=== PATIENT | male | born 1965 | race Caucasian/White ===

== ENCOUNTER 2016-05-24 12:12 | Day surgery (SDC) | payer OTHER ==
[2016-05-24] VITALS (8 sets, daily range): BP systolic 111–132; BP diastolic 48–75; PULSE 65–103; RESP 8–16; O2SAT 95–100
[~2016-05-24] VITALS: Ht 182.9 cm; Wt 94.3 kg
[~2016-05-24 12:12] MED LIST: ATEN50TA PO; Ampicillin 2,000 mg/50 mL NS Minibag Plus IV SCH; HYDR12.55 PO; levoFLOXacin Inj 500 MG in IV Premix 1 EACH IV ONE
[2016-05-24] MEDS ORDERED: Dexamethasone 4 mg/mL Inj ONE (12:13)
[2016-05-24] MEDS ORDERED: EPHEDrine/NS 5 mg/mL 5 mL Syringe ONE (12:13)
[2016-05-24] MEDS ORDERED: Phenylephrine/NS-PF 100 mCg/mL 5 mL Syringe IVPUSH ONE (12:13)
[2016-05-24] MEDS ORDERED: fentaNYL-PF 50 mCg/mL 2 mL Inj ONE (12:13)
[2016-05-24] MEDS ORDERED: MetoCLOpramide 5 mg/mL 2 mL Inj ONE (12:13)
[2016-05-24] MEDS ORDERED: Propofol 10,000 mCg/mL 20 mL Inj ONE (12:13)
[2016-05-24] MEDS ORDERED: Ondansetron 2 mg/mL 2 mL Inj ONE (12:13)
[2016-05-24] MEDS ORDERED: Neostigmine 1 mg/mL 10 mL Inj ONE (12:13)
[2016-05-24] MEDS ORDERED: Glycopyrrolate 0.2 MG/ML 1mL Inj ONE (12:13)
[2016-05-24] MEDS: Lactated Ringer's 1,000 ML IV SCH ×2 (12:18→14:17)
--- NOTE | 2016-05-24 12:41 | DRSVH ---
PROCEDURE: X-RAY CHEST ONE VIEW, PORTABLE ([id number]) INDICATIONS: pre-op TECHNIQUE: One view of the chest was acquired. COMPARISON: [facility], , CHEST 2VW, 07/12/2014, 11:59. FINDINGS: Surgical changes and devices: None. Lungs and pleura: Slight interstitial prominence within the left infrahilar region appears to be pres ent. There is no lobar consolidation, effusion, or pneumothorax. Mediastinum: Mediastinal contours appear normal. Heart size is normal. Bones and chest wall: No suspicious bony lesions. Overlying soft tissues appear unremarkable. IMPRESSION: Mild left infrahilar interstitial prominence may be exaggerated by overlying calcified ca rtilage of the ribs and technique. The possibility of a subtle underlying interstitial pneumonia or mild edema cannot be excluded, but is felt to be less likely. The need for a conventional [address] [facility] [address] x-ray may be determined clinically. Dictated by: Max Chino M.D. on 05/24/2016 at 11:38 Approved by: Max Chino M.D. on 05/24/2016 at 11:40
[2016-05-24] MEDS ORDERED: levoFLOXacin 500 mg/100 mL D5W Premix IV ONE (13:14)
[2016-05-24] MEDS ORDERED: Lactated Ringer's 1,000 ML IV SCH (14:46)
[2016-05-24] MEDS ORDERED: Lactated Ringer's 500 ML IV PRN (14:46)
--- NOTE | 2016-05-24 14:46 | PCM.HPANE ---
Patient Data Surgeon Admitting Provider: Attending Provider:Mickey Dukes MD Primary Care Physician:Leonardo Other Provider:Chidi Earl Anesthesia Reason for Visit Right Kidney Stone Ht/WT & BMI Height (Feet): 5 Height (Inches): 11 Weight (Kilograms): 97.7 Body Mass Index 30.00 Allergies Coded Allergies: No Known Allergies (Verified Allergy, Unknown, 05/24/16) Past Anesthesia History Anesthesia History: Denies:: Anesthesia Reactions, Malignant Hyperthermia Diabetes History Hx Diabetes?: No MRSA MRSA: No Medications Hypertension Medication: Yes Home Meds Incl Beta Hui: Yes Reported Medications Hydrochlorothiazide 12.5 Mg Lijaoq83.5 Mg PO DAILY 30 Days Ref 0 05/23/16 Atenolol 50 Mg Dxyxeq16 Mg PO DAILY #30 TABLET Ref 0 05/23/16 Discontinued Reported Medications Tamsulosin (Flomax)0.4 Mg Capsule0.4 Mg PO DAILY 30 Days Ref 0 05/04/14 Cephalexin 250 Mg [id number] Mg PO HS #30 CAPSULE Ref 0 05/04/14 Atenolol 50 Mg Hltckx16 Mg PO HS #30 TABLET Ref 0 03/09/14 Hydrochlorothiazide 12.5 Mg Cqtytn16.5 Mg PO DAILY 30 Days Ref 0 03/09/14 History History of ENT Problems?: No Hx of Heart Problems?: Yes Cardiovascular History: Positive for:: Hypertension Hx of Respiratory Problem?: Yes Respiratory History: Positive for:: Use of C-PAP Machine Hx Neurologic Problems?: No Neurological History: Denies:: CVA Dizziness Headaches Multiple Sclerosis Parkinson's Disease Hx of GI Problems?: No Gastrointestinal History: Denies:: Gall Bladder Disease Gastroesphageal Reflux Hepatitis Hx of Problems?: Yes Genitourinary History: Positive for:: Kidney Stones (right stone current admission problem, hx of multiple prior stones) Denies:: Urinary Tract Infection (past hx of, not current) Male Hx: Denies:: Prostate Problems Scrotal Mass Testicular Surgery Skin History: Denies:: History Skin Disorders? Pressure Ulcers Hx Musculoskeletal Problems?: Yes Musculoskeletal History: Positive for:: Musculoskeletal Trauma (hx of left foot ankle surgery (charcot disease)) Denies:: Back Injury (hx of low back pain) Hx of Psycho/Social Problems?: No Hx Surgeries?: Yes (CYSTO,LITHOTRIPSY,RT STENT W/ EXCHANGE, L ankle reconstruction) Hx Any Other Health Problems?: Yes Other History: Positive for:: Hospitalization (LT KIDNEY STONE/UTI) Denies:: Cancer Endocrine Disease Thyroid Disease History Blood Transfusions: Denies:: Blood Transfusions Hx Diabetes: No Smoking Status: Never Smoker Have You Smoked inLast 12 mo: No Stop/Bang S-Snoring: Do You Snore Loudly: Yes T-Tired: feel tired, fatigued: No O-Obsered: Observed not breath: No P-Blood Pressure: treated: Yes B- Body Mass Index > 35 kg/m2: No A- Age over 50: Yes N- Neck Large Circumference: No G- Gender Male: Yes ARIES Total Score: 4 Risk Assessment Category Category 1A: Patient has history of documented sleep apnea, and HAS NOT received any narcotic, sedative or anesthesia administration during this stay. Category 1B: Patient has history of documented sleep apnea, and HAS received any narcotic , sedative or anesthesia administration during this stay Category 2: Patient has SUSPECTED Obstructive Sleep Apnea, and HAS received any narcotic , sedative or anesthesia administration during this stay. Category 3: Patient has SUSPECTED Obstructive Sleep Apnea and HAS NOT received narcotic, sedative or anesthesia administration during this stay. Category 4: Outpatient in Procedural Areas with known sleep apnea or who screen positive for High Risk via the STOP/BANG questionnaire. Exam Exam General Appearance: Alert, Oriented X3, Cooperative, No Acute Distress HEENT/AIRWAY: MP 2, Neck Movement (FROM), Mouth Opening (3 FBMO) Lungs: Clear to Auscultation, Normal Air Movement Heart: Exam Unremarkable, Regular Rate/Rhythm, No Murmurs/Rubs/Gallops Meds/Labs/Diagnostics Admission Meds Current Medications Lactated Ringer's (Lr) 1,000 ml @ 120 mls/hr Q8H20M IV Last administered on t 12:18; Start 05/24/16 at 05:00; Stop 05/24/16 at 13:19 Plan Impression Patient chart reviewed, patient interviewed and anesthestic plan with risks, benefits, and alternatives discussed, and informed consent obtained. NPO Status: 0600 water with meds ASA Physical Status: ASA2 Mod Systemic Disease Anesthetic Plan: GA Bene/Risks/Altern/Consents: Yes HP Complete Prior to Induction: Yes Jimbo Stoddard MD May 24, 2016 12:54
[2016-05-24] MEDS ORDERED: fentaNYL-PF 50 mCg/mL 2 mL Inj IVPUSH PRN (14:50)
[2016-05-24] MEDS ORDERED: HYDROmorphone 1 mg/mL Inj IVPUSH PRN (14:50)
[2016-05-24] MEDS ORDERED: EPHEDrine Sulfate 50 mg/mL Inj IVPUSH PRN (14:50)
[2016-05-24] MEDS ORDERED: MetoCLOpramide 5 mg/mL 2 mL Inj IVPUSH PRN (14:50)
[2016-05-24] MEDS ORDERED: Ondansetron 2 mg/mL 2 mL Inj IVPUSH PRN (14:50)
[2016-05-24] MEDS ORDERED: Atropine 0.4 mg/mL Inj IVPUSH PRN (14:50)
[2016-05-24] MEDS ORDERED: Labetalol 5 mg/mL 4 mL Inj IV PRN (14:50)
[2016-05-24] MEDS ORDERED: Phenylephrine 10,000 mCg/mL Inj IVPUSH PRN (14:50)
[2016-05-24] MEDS ORDERED: Belladonna Alk-Opium 60 mg Rectal Suppository RECTAL ONE (16:37)
--- NOTE | 2016-05-24 16:56 | PCM.SURGPO ---
Immediate Operative Note Date of Surgery: May 24, 2016 Pre Operative Diagnosis R renal calculi Post Operative Diagnosis R renal calculi Procedure Cystoscopy, R ureteroscopy, Holmium laser lithotripsy, basket extraction of calculi and calculi fragments, and R ureteral stent placement (modifier 22) Surgeon and Application Development Liaison Surgeon: Mickey Dukes MD Assistants: None Findings R semi-rigid ureteroscopy revealed no calculi in R distal or R mid ureter. A 12 /14F x 45cm ureteral access sheath was placed in R ureter. R flexible ureteroscopy revealed no calculi in R proximal ureter and a very large number of R renal calculi (majority of calculi approx. <5mm, small number of calculi approx. 5-10mm). Holmium laser lithotripsy and basket extraction of calculi and calculi fragments were performed. R ureteral stent was placed. Complications There were no periprocedural complications identified. Surgical Specimen Removed: Yes Specimen sent to Pathology: No Surgical Specimen description: R renal calculi and calculi fragments sent to lab for stone analysis Anesthetic Administered: GA Grafts, Implants: Other (26cm x 8F R ureteral JJ stent (no string)) Output, Estimated Blood Loss: <5 Blood Admin during surgery: No Additional information Patient to be discharged home when stable, to return to see me in 2-3 weeks for post-op visit, with a KUB prior to appt. Mickey Dukes MD May 24, 2016 16:56
--- NOTE | 2016-05-24 17:02 | PCM.ANEP1 ---
Post Anesthesia Phase 1 PACU Phase 1 Assessment Vital Signs Vital Signs Date Time Temp Pulse Resp B/P Pulse Ox O2 Delivery O2 Flow Rate FiO2 05/24/16 16:55 96 13 123/64 99 Simple Mask 9 05/24/16 16:54 36.9 103 8 132/65 99 Simple Mask 9 05/24/16 13:00 36.5 65 16 128/75 100 Room Air Anesthetic Administered: GA Level of Alertness: Awake, talking CALDERA's with Equal Strength: Yes Pain: No Nausea or Vomiting: No Oxygen Delivery: Simple Mask Lungs: Clear to Auscultation, Normal Air Movement Dermatome Level: Full Sensation Jimbo Stoddard MD May 24, 2016 17:02
--- NOTE | 2016-05-24 17:03 | PCM.ANEP2 ---
Post Anesthesia Evaluation ASA/CMS Post Anesthesia VS in Patient's Normal Range?: Yes Resp Stable; Airway Patent?: Yes CV Function & Hydration Stable: Yes Mental Status Recovered?: Yes Pain control Satisfactory?: Yes N/V Control Satisfactory?: Yes Jimbo Stoddard MD May 24, 2016 17:03
--- NOTE | 2016-05-24 17:13 | PCM.DISURG ---
Surgical Discharge Instruction Date of Service May 24, 2016 Dates of Hospitalization Date of Hospital Admission May 24, 2016 Providers Admitting Physician: Mickey Dukes MD Primary Care Physician: Dr. Deniz Kelly Attending Physician: Mickey Dukes MD Discharge Diagnosis Discharge Diagnosis R renal calculi Post Operative diagnosis R renal calculi Diet Discharge Diet: No restrictions, Other (Drink at least 10-12 8oz. glasses (3 liters) of fluids per day) Activity Discharge Activity-General: No driving while taking narcotic Dressing and Incisional Care Hygiene: May shower Follow Up Plan Follow-up Provider (F9): Mickey Dukes MD Follow-up appointment: Weeks (2-3 weeks for post-op visit, with a KUB prior to appt.) Call your provider for: Fever, Chills, Vomiting, Other (Pain uncontrolled by pain medications) Mickey Dukes MD May 24, 2016 17:13
[2016-05-24] MEDS ORDERED: Ondansetron 8 mg ODT Tablet PO PRN (17:15)
[2016-05-24] MEDS ORDERED: HYDROcodone-APAP 5-325 mg Tablet PO PRN (17:15)
[2016-05-24] MEDS ORDERED: Lactated Ringer's 1,000 ML IV ONE (17:28)
--- NOTE | 2016-05-25 09:02 | DRSVH ---
PROCEDURE: X-RAY RETROGRADE UROGRAPHY INDICATIONS: STONE REMOVAL TECHNIQUE: 3 intra-operative images acquired by the Urology service. COMPARISON: [facility], CT, CT ABD PELVIS W&WO CON IVP, 03/06/2016, 15:14. FINDINGS: Multiple intraluminal filling defects seen within the right renal collecting system larges t measuring roughly 2 cm. There is mild hydronephrosis. No extravasation of contrast media a ureter al stent in place. IMPRESSION: Right hydronephrosis and multiple intraluminal filling defects visualized largest measuring roughly 2 cm. Placement of ureteral stent. Dictated by: Manuel Carrasco [facility] Interpreted: Mckayla Cardoso MD on 05/25/2016 at 9:00 Transcribed by: ALDAIR on 05/25/2016 at 9:01 Approved by: Mckayla Cardoso MD, PhD on 05/25/2016 at 16:35
--- NOTE | 2016-05-25 15:27 | OP ---
[address] [address] OPERATIVE REPORT PATIENT: RODY SCOTT : 1965 MR#: [id number] ADMIT: 05/24/2016 JOB ID: [id number] DATE OF SURGERY: 05/24/2016 PREOPERATIVE DIAGNOSIS(ES): Right renal calculi. POSTOPERATIVE DIAGNOSIS(ES): Right renal calculi. PROCEDURE: Cystoscopy, right ureteroscopy, Holmium laser lithotripsy, basket extraction of calculi and calculi fragments, and right ureteral stent placement (modifier 22). SURGEON: Mickey Dukes MD. COMIC BOOK WRITER: None. ANESTHESIA: General. ESTIMATED BLOOD LOSS: Less than 5 mL. SPECIMENS: Right renal calculi and calculi fragments sent to the lab for stone analysis. DRAINS: 26 cm x 8-Eritrean right ureteral double-J stent. COMPLICATIONS: None. CONDITION: Stable. FINDINGS: Right semi-rigid ureteroscopy revealed no calculi in right distal or right mid ureter. A 12/14-Eritrean x 45 cm ureteral access sheath was placed in the right ureter. Right flexible ureteroscopy revealed no calculi in right proximal ureter and a very large number of right renal calculi (majority of calculi approximately less than 5 mm and a smaller number of calculi approximately 5-10 mm). Holmium laser lithotripsy and basket extraction of calculi and calculi fragments were performed. Right ureteral stent was placed. INDICATIONS: The patient is a 51-year-old male with multiple non-obstructing right renal calculi seen on CT scan. The patient now presents for cystoscopy, right ureteroscopy, Holmium laser lithotripsy, basket extraction of calculi fragments , and right ureteral stent placement. PROCEDURE: Patient was brought to the operating room and placed supine on the operating room table. The patient was given Ampicillin and Levaquin IV antibiotics. Sequential compression device boots were placed. General anesthesia was administered. The patient was brought down into the dorsal lithotomy position. The patient was prepped and draped in standard surgical fashion. A 22-Eritrean rigid cystoscope placed in the distal urethra without difficulty. Cystoscopy revealed normal distal urethra, no bladder tumors or lesions, and bilateral ureteral orifices in normal position. A straight-tip UltraTrack guidewire was passed into the right ureteral orifice and passed up the right ureter into the right renal pelvis. Cystoscope was removed from the patient. The guidewire was secured to the drape with a Tammie clamp as a safety wire. A semi-rigid ureteroscope was passed through the urethra and bladder and into the right ureteral orifice with the assistance of a PTFE guidewire. Right semi-rigid ureteroscopy revealed no calculi in right distal or right mid ureter. PTFE guidewire was advanced up the right ureter into the right renal pelvis. The semi-rigid ureteroscope was removed from the patient. A 12/14- Eritrean x 45 cm ureteral access sheath was passed over the PTFE guidewire through the urethra and bladder and into the right mid ureter. The inner portion of the sheath and PTFE guidewire were removed from the patient. A flexible ureteroscope was passed through the ureteral access sheath into the right proximal ureter. Right flexible ureteroscopy revealed no calculi in the right proximal ureter and a very large number of right renal calculi (majority of calculi approximately less than 5 mm and a smaller number of calculi approximately 5-10 mm). Holmium laser lithotripsy of the calculi was performed using a 273 micron Holmium laser fiber. Of note, the majority of the calculi were seen to be in right lower pole and right mid pole calyces, and again a very large number of calculi were seen. Basket extraction of calculi and calculi fragments was performed using a 2.4-Eritrean NCompass nitinol basket and a 2.4-Eritrean NCircle nitinol basket. Calculi and calculi fragments were sent to the lab for stone analysis. An approximately 1 cm calculus was seen in a right lower to mid pole calyx at the end of a long infundibulum, with difficulty encountered in manipulating the flexible ureteroscope into the calyx. The calculus was able to be partially fragmented using Holmium laser lithotripsy. However, the remainder of the calculus was unable to be fragmented secondary to the location of the calculus in a corner of the calyx. The calculus was attempted to be manipulated out of the calyx or into a different part of the calyx using the NCompass and NCircle baskets and also a 2.2-Eritrean NGage nitinol basket. However, this was unable to be achieved, and thus the remainder of the calculus was unable to be treated. Thus, the calculus was unable to be manipulated into a different part of the calyx or out of the calyx, and the remainder of the calculus was unable to be fragmented secondary to the location of the calculus in a corner of the calyx, with the calyx located at the end of a long infundibulum in the lower to mid pole. If patient is unable to pass this calculus in the future, would recommend extracorporeal shockwave lithotripsy of this calculus or possibly ureteroscopy with a thinner flexible ureteroscope. Of note, throughout the procedure, multiple irrigations of the renal collecting system were performed using power irrigation, using normal saline solution to irrigate fragments out of the collecting system. Of note, a modifier 22 is being used for this case secondary to the difficult nature of the case with a very large number of renal calculi seen and with the difficult location of the 1 cm calculus in the right lower to mid pole calyx, with this case taking more than 50% longer than usual for this type of case. A small amount of contrast was instilled into the right renal collecting system to illuminate the right renal collecting system to aid in stent placement. The flexible ureteroscope and ureteral access sheath were backed down the right ureter, and the entire right ureter was visualized. No significant calculi were seen in the right ureter. Flexible ureteroscope and ureteral access sheath were removed from the patient. The rigid cystoscope was passed over the safety guidewire through the urethra into the bladder. A 26 cm x 8-Eritrean ureteral double-J stent, with the stent string removed prior to stent placement, was passed over the guidewire through the cystoscope and passed up the right ureter and placed so that the proximal pigtail was located in the right renal pelvis and the distal pigtail was located in the bladder. Guidewire was removed. Correct positioning of the stent was confirmed both fluoroscopically and under direct visualization using the cystoscope. Good efflux of contrast could be seen draining from the distal end of the stent into the bladder, further confirming correct stent positioning. Thus, right ureteral stent was placed. The right renal calculi and calculi fragments were sent to the lab for stone analysis. The bladder was drained via the cystoscope. Cystoscope was removed from the patient. The skin was cleaned and dried. Patient was placed in supine position. The patient was awakened from general anesthesia and transferred to the recovery room in stable condition. The patient tolerated the procedure well. Plan is for the patient to be discharged home when stable and to return to see me in the office in 2-3 weeks for postop visit with a KUB X-ray prior to the appointment. SAMIR
[2016-06-01 09:10] LABS: Stone Color Tan (.)
== END 2016-05-24 23:59 | disposition home or self-care (01) ==
LOC: SAS 12:12
PROVIDERS: ATTEND Urology
DX: N20.0 Calculus of kidney (principal); N40.1 Benign prostatic hyperplasia with lower urinary tract symptoms; R35.1 Nocturia; G60.0 Hereditary motor and sensory neuropathy; I10 Essential (primary) hypertension; Z87.440 Personal history of urinary (tract) infections
CPT/HCPCS: 52356; 71010; 74420; 82360; 93005; C2617; J0290; J1100; J2370; J2405; J2710; J2765; J3010; J7120; Q9967

== ENCOUNTER 2016-05-28 05:54 | Day surgery (SDC) | payer OTHER ==
[2016-05-28] VITALS (13 sets, daily range): BP systolic 121–152; BP diastolic 73–84; PULSE 72–90; RESP 9–24; O2SAT 95–100
[~2016-05-28] VITALS: Ht 182.9 cm; Wt 97.7 kg
[~2016-05-28 05:54] MED LIST changes: -Ampicillin 2,000 mg/50 mL NS Minibag Plus IV SCH; -levoFLOXacin Inj 500 MG in IV Premix 1 EACH IV ONE
[2016-05-28] MEDS ORDERED: 0.9% Sodium Chloride 1,000 ML IV ONE (06:18)
[2016-05-28] MEDS ORDERED: HYDROmorphone 1 mg/mL Inj IVPUSH ONE (06:20)
[2016-05-28] MEDS ORDERED: HYDROmorphone 1 mg/mL Inj IVPUSH PRN ×2 (06:20→11:15)
[2016-05-28] MEDS ORDERED: Ondansetron 2 mg/mL 2 mL Inj IVPUSH ONE (06:20)
[2016-05-28] MEDS ORDERED: Ondansetron 2 mg/mL 2 mL Inj IVPUSH PRN ×2 (06:20→11:15)
--- NOTE | 2016-05-28 06:20 | ED.REPORT ---
HPI-General Illness Date of Service May 28, 2016 ED Provider: Rachna Franks MD The patient is a 51 year old male with history of kidney stones who presents to the emergency department by EMS for right flank pain that has been worsening over the last week. The patient had surgery to remove a kidney stone on (4 days ago). He was unable to void the day after procedure and had a catheter placed. He was placed on an antibiotic when he had the catheter placed. His pain today was 10/10 and he also noticed diaphoresis. He was given 100 mics fentanyl and Zofran en route by medics. He denies fever, chills, or vomiting. Nursing Notes Stated Complaint: R FLANK PAIN Chief Complaint: Male Abdominal Pain Nursing Notes Reviewed: Yes Allergies: Coded Allergies: No Known Allergies (Verified Allergy, Unknown, 05/24/16) Scheduled Atenolol (Atenolol) 50 Mg Tablet 50 MG PO DAILY Hydrochlorothiazide (Hydrochlorothiazide) 12.5 Mg Tablet 12.5 MG PO DAILY General Time Seen by MD: 06:12 Chief Complaint Other (right flank pain) Hx Obtained From: Patient, EMS Arrived By: Ambulance Onset Occurred: 1 week ago Symptom Duration: Since onset Quality: Painful Severity: Current: Pain level 10 out of 10 Severity: Maximum: Pain level 10 out of 10 Recent Healthcare: Recent doctor visit, Previous surgery Similar Sx Previous: Yes Past Medical History Past Medical History Kidney stones Hx of adenike nicholas Past Surgical History Kidney stone removal Family History Noncontributory Smoking History Never Smoker Social History Other Social History: Local resident Ambulatory Status Independent Review of Systems Full Review of Systems Constitutional: Denies: Chills, Fever GI: Denies: Vomiting Male: Reports Flank pain Skin: Reports Diaphoresis Complete sys rev & neg: except as marked. Physical Exam Vital Signs Vital Signs Date Time Temp Pulse Resp B/P Pulse Ox O2 Delivery O2 Flow Rate FiO2 05/28/16 09:25 72 141/79 95 05/28/16 07:06 77 16 140/81 98 05/28/16 06:04 37.2 72 20 144/83 100 Room Air Initial VS: Reviewed Head / Eyes: Atraumatic, Normocephalic, PERRL ENT: Mucous membranes moist, Conjunctiva normal, No scleral icterus Neck: Supple, Non-tender, Full range of motion Lymphatic: No lymphadenopathy Extremities: Vascular intact, Neuro intact, No swelling, No tenderness Skin: Warm, Dry, No cyanosis Neurologic: Alert, Oriented, Nonfocal Psychiatric: Mood/affect normal, Behavior normal, Normal thought content General/Constitutional: Awake, Alert, Cooperative Respiratory / Chest: Atraumatic, Breath sounds NL, No respiratory distress, No rales, No rhonchi, No wheezing Cardiovascular: Heart rate NL, Regular rhythm, Heart sounds NL, Cap refill not delayed, Peripheral circulation NL Abdomen: Soft, No guarding, No rebound, BS normoactive, No distention Right pelvis tenderness Flank / Spine / Paraspinal: Positive: Flank tender R (down into pelvis) Ankle / Foot: Neurologic intact, Vascular intact Bilateral chronic foot deformities. Male Genitourinary: Atraumatic Capone catheter in place Interpretation & Diagnostics CT KUB IMPRESSION: 1. There are multiple staghorn stones in the right kidney with the largest one measuring 28 x 26 x 13 mm. There is moderate right hydronephrosis and hydroureter. A right ureter stent is present. There is a stone in the distal right ureter adjacent to the right ureter stent. 2. Nonobstructive left renal calculi and small stones in the bladder. No significant discrepancy with the caustic cresylate shift superintendent radiology preliminary report. Dictated by: Priscila Lee M.D. on 05/28/2016 at 8:57 Lab Results Interpretation Result Diagram: 05/28/16 0615 05/28/16 0615 Test 05/28/16 06:15 05/28/16 07:30 White Blood Count 12.9th/mm3 (3.8-10.1) Red Blood Count 5.02mil/mm3 (4.40-5.80) Hemoglobin 15.8g/dL (13.8-17.2) Hematocrit 44.4% (41.0-50.0) Mean Corpuscular Volume 88.4fL (81-100) Mean Corpuscular Hemoglobin 31.5pg (27.0-35.0) Mean Corpuscular Hemoglobin Concent 35.6% (32.0-37.0) Red Cell Distribution Width 13.2% (12.3-15.4) Platelet Count 299bil/L (150-400) Neutrophils (%) (Auto) 80.4% (40-74) Lymphocytes (%) (Auto) 9.7% (14-46) Monocytes (%) (Auto) 9.3% (4-12) Eosinophils (%) (Auto) 0.1% (0-5) Basophils (%) (Auto) 0.2% (0-3) Sodium Level 134mEq/L (134-144) Potassium Level 3.7mEq/L (3.5-5.2) Chloride Level 95mEq/L (97-108) Carbon Dioxide Level 23mmol/L (18-29) Blood Urea Nitrogen 17mg/dL (6-24) Creatinine 0.78mg/dL (0.76-1.27) Estimat Glomerular Filtration Rate 112mL/min (>59) Glucose Level 151mg/dL (60-99) Calcium Level 10.3mg/dL (8.5-10.1) Magnesium Level 1.9mg/dL (1.6-2.6) Total Bilirubin 0.8mg/dL (0.0-1.2) Aspartate Amino Transf (AST/SGOT) 22U/L (0-50) Alanine Aminotransferase (ALT/SGPT) 27U/L (0-44) Alkaline Phosphatase 66U/L (25-150) Total Protein 8.0g/dL (6.4-8.4) Albumin 4.5g/dL (3.4-5.0) Lipase 28U/L (13-60) Hold Urine Received (Received) Re-Eval/Medical Decision Med Decision/Clinical Course 6 mm obstructing right kidney stone in setting of recent lithotripsy and stent in place. We will go back to the operating room this afternoon with Dr. Villalta. Anticipated discharge after that. Pain is controlled in the emergency Department no evidence of acute infection. Source of Hx: Old records, EMS Time of Eval: 07:39 Re-Evaluation/Progress Note: Discussed CT results. Time of Eval: 09:20 Re-Evaluation/Progress Note: Rechecked the patient. Discussed plan to wait for urology. Consultation #1: Referral / Consult Name: Jed Scott MD Consulted With: Urology Call Returned at: 08:34 Note: Discussed the patient's case and CT results. He is in the OR and will review things when he is done. Consultation #2: Referral / Consult Name: Jed Scott MD Consulted With: Urology Call Returned at: 09:56 Note: After evaluating the patient he would like to take the patient to OR in about 3-4 hours. Counseled Regarding: Diagnosis, Lab results, Need for admission Discharge & Departure Primary Impression: Right ureteral stone Additional Impression: History of ureter stent Disposition: ADMITTED TO HOSPITAL Discharge Condition All VS Reviewed: Yes Condition: Stable Referrals: NOPCP (PCP) Scribe Attestation Portions of this note were transcribed by Kylah Massey. I, Dr. Franks personally performed the history, physical exam and medical decision-making; I reviewed and confirmed the accuracy of the information in the transcribed note. Signed by: Alaina Pittman, 05/28/2016 at 1015. Rachna Franks MD May 28, 2016 06:20 Kylah Massey May 28, 2016 07:05
[2016-05-28 06:31] LABS: BASOPHILS % (AUTO) 0.2 % (0-3); EOSINOPHILS % (AUTO) 0.1 % (0-5); MONOCYTES % (AUTO) 9.3 % (4-12); Mean Corpuscular Hemoglobin 31.5 pg (27.0-35.0); Mean Corpuscular Volume 88.4 fL (81-100); NEUTROPHILS % (AUTO) 80.4 % (40-74); Platelet Count 299 bil/L (150-400)
[2016-05-28 06:46] LABS: Magnesium 1.9 mg/dL (1.6-2.6)
--- NOTE | 2016-05-28 09:11 | DRSVH ---
PROCEDURE: CT KUB ([id number]) INDICATIONS: Lithotripsy 5 days ago, flank pain TECHNIQUE: Noncontrast 5 mm thick sections acquired from the diaphragms to the symphysis. 5 mm thick coronal an d sagittal reformats were then performed. For radiation dose reduction, the following was used: aut omated exposure control, adjustment of mA and/or kV according to patient size. COMPARISON: [facility], CT, KIDNEY/ URETER/BLADDER, 09/04/2013, 11:20. [facility], CT, CT ABD PELVIS W&WO CON IVP, 03/06/2016, 15:14. FINDINGS: Image quality: Excellent. Lung bases: Lung bases are clear. Heart size is normal. Urinary system: There are multiple staghorn calculi bilaterally. There are large stones in the right kidney measuring up to 28 x 26 x 13 mm. There is a right ureteral stent. Moderate hydronephrosis is present, as well as moderate hydroureter. There is an elongated stone in the distal right ureter benito cent to the ureter stent measuring 2 x 18 mm. There are several small stones in left kidney measuring up to 4 mm. No left hydronephrosis. Bladder is partially contracted with a Capone catheter. There are small stones layering inside the dep endent bladder lumen. Other solid organs: Liver and spleen are normal in size. Gallbladder is normal. Pancreas is normal in contours. No adrenal nodules. Peritoneum and bowel: Unenhanced bowel loops demonstrate normal wall thickness and caliber. No free fluid or air. Nodes and vessels: No retroperitoneal or mesenteric adenopathy by size criteria. Aorta and inferior vena cava are normal in caliber. Abdominal wall: No ventral hernias. Pelvis: No free pelvic fluid. No inguinal hernias or adenopathy. Bones: No suspicious bony lesions. No vertebral body compression fractures. IMPRESSION: 1. There are multiple staghorn stones in the right kidney with the largest one measuring 28 x 26 x 13 mm. There is moderate right hydronephrosis and hydroureter. A right ureter stent is present. There i s a stone in the distal right ureter adjacent to the right ureter stent. 2. Nonobstructive left renal calculi and small stones in the bladder. No significant discrepancy with the reaming machine operator for plastic radiology preliminary report. Dictated by: Priscila Lee M.D. on 05/28/2016 at 8:57 Approved by: Priscila Lee M.D. on 05/28/2016 at 9:10
[2016-05-28] MEDS ORDERED: Vasopressin 20 Unit/mL Inj ONE (10:23)
[2016-05-28] MEDS ORDERED: EPHEDrine/NS 5 mg/mL 5 mL Syringe ONE (10:23)
[2016-05-28] MEDS ORDERED: Ondansetron 2 mg/mL 2 mL Inj ONE (10:23)
[2016-05-28] MEDS ORDERED: MetoCLOpramide 5 mg/mL 2 mL Inj ONE (10:23)
[2016-05-28] MEDS ORDERED: Rocuronium 10 mg/mL 5 mL Inj ONE (10:23)
[2016-05-28] MEDS ORDERED: Propofol 10,000 mCg/mL 20 mL Inj ONE (10:23)
[2016-05-28] MEDS ORDERED: fentaNYL-PF 50 mCg/mL 2 mL Inj ONE (10:23)
[2016-05-28] MEDS ORDERED: Succinylcholine Chloride 20 mg/mL 5 mL Inj ONE (10:23)
[2016-05-28] MEDS ORDERED: Belladonna Alk-Opium 60 mg Rectal Suppository RECTAL ONE ×2 (11:00→11:33)
[2016-05-28] MEDS ORDERED: Lactated Ringer's 500 ML IV PRN (11:14)
--- NOTE | 2016-05-28 11:14 | PCM.HPANE ---
Patient Data Surgeon Admitting Provider: Attending Provider:Jed Scott MD Primary Care Physician:Deniz Kelly Other Provider: Reason for Visit Obstructing Stone Ht/WT & BMI Height (Feet): 6 Height (Inches): 0 Weight (Kilograms): 97.73 Body Mass Index Allergies Coded Allergies: No Known Allergies (Verified Allergy, Unknown, 05/24/16) Past Anesthesia History Anesthesia History: Denies:: Abnormal Airway, Anesthesia Reactions, Difficult Intubation, Fam Anesthesia Reaction, Fam Malignant Hypertherm, Malignant Hyperthermia Diabetes History Hx Diabetes?: No MRSA MRSA: No Medications Hypertension Medication: Yes Home Meds Incl Beta Hui: Yes Previous Beta Hui Dose >24: Previous Dose <24 Hours Reported Medications Hydrochlorothiazide 12.5 Mg Safmys10.5 Mg PO DAILY 30 Days Ref 0 05/23/16 Atenolol 50 Mg [id number] Mg PO DAILY #30 TABLET Ref 0 05/23/16 Discontinued Reported Medications Tamsulosin (Flomax)0.4 Mg Capsule0.4 Mg PO DAILY 30 Days Ref 0 05/04/14 Cephalexin 250 Mg [id number] Mg PO HS #30 CAPSULE Ref 0 05/04/14 Atenolol 50 Mg [id number] Mg PO HS #30 TABLET Ref 0 03/09/14 Hydrochlorothiazide 12.5 Mg Asvbse43.5 Mg PO DAILY 30 Days Ref 0 03/09/14 History History of ENT Problems?: No Hx of Heart Problems?: Yes Cardiovascular History: Positive for:: Hypertension Hx of Respiratory Problem?: Yes Respiratory History: Positive for:: Use of C-PAP Machine Hx Neurologic Problems?: No Neurological History: Denies:: CVA Dizziness Headaches Multiple Sclerosis Parkinson's Disease Hx of GI Problems?: No Gastrointestinal History: Denies:: Gastroesphageal Reflux Hepatitis Other GI Pertinent History: Endorses nausea today, no emesis. NPO since 20: 00 4/2 Hx of Problems?: Yes Genitourinary History: Positive for:: Kidney Stones (right stone current admission problem, hx of multiple prior stones) Denies:: Urinary Tract Infection (past hx of, not current) Male Hx: Denies:: Prostate Problems Scrotal Mass Testicular Surgery Skin History: Denies:: History Skin Disorders? Pressure Ulcers Hx Musculoskeletal Problems?: Yes Musculoskeletal History: Positive for:: Musculoskeletal Trauma (hx of left foot ankle surgery (charcot disease)) Denies:: Back Injury (hx of low back pain) Hx of Psycho/Social Problems?: No Hx Surgeries?: Yes (CYSTO,LITHOTRIPSY,RT STENT W/ EXCHANGE, L ankle reconstruction) Hx Any Other Health Problems?: Yes Other History: Positive for:: Hospitalization (LT KIDNEY STONE/UTI) Denies:: Cancer Endocrine Disease Thyroid Disease History Blood Transfusions: Denies:: Blood Transfusions Hx Diabetes: No Hx Alcohol Use: NoHx Substance Use: No Smoking Status: Never Smoker Have You Smoked inLast 12 mo: No Stop/Bang ARIES Risk Assessment: High Risk, =/>3 Yes Risk Assessment Category Category 1A: Patient has history of documented sleep apnea, and HAS NOT received any narcotic, sedative or anesthesia administration during this stay. Category 1B: Patient has history of documented sleep apnea, and HAS received any narcotic , sedative or anesthesia administration during this stay Category 2: Patient has SUSPECTED Obstructive Sleep Apnea, and HAS received any narcotic , sedative or anesthesia administration during this stay. Category 3: Patient has SUSPECTED Obstructive Sleep Apnea and HAS NOT received narcotic, sedative or anesthesia administration during this stay. Category 4: Outpatient in Procedural Areas with known sleep apnea or who screen positive for High Risk via the STOP/BANG questionnaire. Exam Exam Vital Signs Vital Signs Date Time Temp Pulse Resp B/P Pulse Ox O2 Delivery O2 Flow Rate FiO2 05/28/16 10:47 83 18 138/78 96 Room Air 05/28/16 09:25 72 141/79 95 05/28/16 07:06 77 16 140/81 98 05/28/16 06:04 37.2 72 20 144/83 100 Room Air General Appearance: Alert, Oriented X3, Cooperative, No Acute Distress HEENT/AIRWAY: MP 2 Lungs: Clear to Auscultation, Normal Air Movement Heart: Exam Unremarkable, Regular Rate/Rhythm, No Murmurs/Rubs/Gallops Meds/Labs/Diagnostics Admission Meds Current Medications Sodium Chloride (Normal Saline) 1,000 ml @ 0 mls/hr Q0M ONCE IV Last administered on 05/28/16 06:30; Start 05/28/16 at 06:18; Stop 05/28/16 at 06:20; Status DC Ondansetron HCl (Zofran Inj) 8 mg ONCE ONCE IVPUSH Last administered on 06:31; Start 05/28/16 at 06:20; Stop 05/28/16 at 06:21; Status DC Ketorolac Tromethamine (Toradol Inj) 30 mg ONCE ONCE IVPUSH Last administered on 05/28/16 06:30; Start 05/28/16 at 06:20; Stop 05/28/16 at 06:21; Status DC Hydromorphone HCl (Dilaudid Inj) 1 mg Q15MIN ONCE IVPUSH Last administered on 05/28/16 06:30; Start 05/28/16 at 06:20; Stop 05/28/16 at 06:21; Status DC Labs Test 05/28/16 06:15 05/28/16 07:30 White Blood Count 12.9th/mm3 (3.8-10.1) Red Blood Count 5.02mil/mm3 (4.40-5.80) Hemoglobin 15.8g/dL (13.8-17.2) Hematocrit 44.4% (41.0-50.0) Mean Corpuscular Volume 88.4fL (81-100) Mean Corpuscular Hemoglobin 31.5pg (27.0-35.0) Mean Corpuscular Hemoglobin Concent 35.6% (32.0-37.0) Red Cell Distribution Width 13.2% (12.3-15.4) Platelet Count 299bil/L (150-400) Neutrophils (%) (Auto) 80.4% (40-74) Lymphocytes (%) (Auto) 9.7% (14-46) Monocytes (%) (Auto) 9.3% (4-12) Eosinophils (%) (Auto) 0.1% (0-5) Basophils (%) (Auto) 0.2% (0-3) Sodium Level 134mEq/L (134-144) Potassium Level 3.7mEq/L (3.5-5.2) Chloride Level 95mEq/L (97-108) Carbon Dioxide Level 23mmol/L (18-29) Blood Urea Nitrogen 17mg/dL (6-24) Creatinine 0.78mg/dL (0.76-1.27) Estimat Glomerular Filtration Rate 112mL/min (>59) Glucose Level 151mg/dL (60-99) Calcium Level 10.3mg/dL (8.5-10.1) Magnesium Level 1.9mg/dL (1.6-2.6) Total Bilirubin 0.8mg/dL (0.0-1.2) Aspartate Amino Transf (AST/SGOT) 22U/L (0-50) Alanine Aminotransferase (ALT/SGPT) 27U/L (0-44) Alkaline Phosphatase 66U/L (25-150) Total Protein 8.0g/dL (6.4-8.4) Albumin 4.5g/dL (3.4-5.0) Lipase 28U/L (13-60) Hold Urine Received (Received) Plan Impression Patient chart reviewed, patient interviewed and anesthestic plan with risks, benefits, and alternatives discussed, and informed consent obtained. NPO Status: 0600 water with meds ASA Physical Status: ASA2 Mod Systemic Disease Anesthetic Support Modalities: Whitt Scope (available) Anesthetic Plan: GA (GETA given recent nausea) Bene/Risks/Altern/Consents: Yes HP Complete Prior to Induction: Yes Jimbo Castro MD May 28, 2016 10:54
[2016-05-28] MEDS ORDERED: fentaNYL-PF 50 mCg/mL 2 mL Inj IVPUSH PRN (11:15)
[2016-05-28] MEDS ORDERED: MetoCLOpramide 5 mg/mL 2 mL Inj IVPUSH PRN (11:15)
[2016-05-28] MEDS ORDERED: Atropine 0.4 mg/mL Inj IVPUSH PRN (11:15)
[2016-05-28] MEDS ORDERED: Phenylephrine 10,000 mCg/mL Inj IVPUSH PRN (11:15)
[2016-05-28] MEDS ORDERED: EPHEDrine Sulfate 50 mg/mL Inj IVPUSH PRN (11:15)
[2016-05-28] MEDS ORDERED: Labetalol 5 mg/mL 4 mL Inj IV PRN (11:15)
[2016-05-28] MEDS ORDERED: Iopamidol-300 50 mL Inj IV ONE (11:33)
[2016-05-28] MEDS ORDERED: Lactated Ringer's 1,000 ML IV ONE (11:34)
[2016-05-28] MEDS: Lactated Ringer's 1,000 ML IV SCH ×2 (12:07→13:01)
--- NOTE | 2016-05-28 12:34 | PCM.ANEP1 ---
Post Anesthesia Phase 1 PACU Phase 1 Assessment Vital Signs Vital Signs Date Time Temp Pulse Resp B/P Pulse Ox O2 Delivery O2 Flow Rate FiO2 05/28/16 10:56 37.2 83 18 138/78 96 Room Air 05/28/16 10:47 83 18 138/78 96 Room Air 05/28/16 09:25 72 141/79 95 05/28/16 07:06 77 16 140/81 98 05/28/16 06:04 37.2 72 20 144/83 100 Room Air Anesthetic Administered: GA Level of Alertness: Awake, talking CALDERA's with Equal Strength: Yes Pain: No Oxygen Delivery: Simple Mask Lungs: Clear to Auscultation, Normal Air Movement Summary VSS, see RN notes for VS values. Jimbo Castro MD May 28, 2016 12:34
--- NOTE | 2016-05-28 12:35 | PCM.ANEP2 ---
Post Anesthesia Evaluation ASA/CMS Post Anesthesia VS in Patient's Normal Range?: Yes Resp Stable; Airway Patent?: Yes CV Function & Hydration Stable: Yes Mental Status Recovered?: Yes Pain control Satisfactory?: Yes N/V Control Satisfactory?: Yes Jimbo Castro MD May 28, 2016 12:35
--- NOTE | 2016-05-28 22:37 | HP PRE OP ---
[address] [address] PREOPERATIVE HISTORY AND PHYSICAL PATIENT: RODY SCOTT : 1965 MR#: [id number] ADMIT: 05/28/2016 JOB ID: [id number] DATE: 05/28/2016 HISTORY: The patient is a 51-year-old gentleman with a history of multiple right renal calculi who underwent difficult but uncomplicated right intrarenal ureteroscopic laser lithotripsy and laser and removal of multiple stones and fragments by Dr. Mickey Dukes on May 24, 2016. He experienced urinary retention the following day, and a Capone catheter was placed. Over the last 12-24 hours, he has had increasing right flank pain despite Dr. Dukes having placed a right ureteral stent. His pain escalated to the point that he presented to the [facility] emergency department and was evaluated by Dr. Franks. CT-KUB May 28, 2016 demonstrates several right intrarenal fragments, apparently adequately positioned right ureteral stent with associated marked ureteral wall edema and presence of a sizeable stone fragment adjacent to the stent in the distal ureter. There is associated moderate to moderately severe hydronephrosis. Allergies past medical history, social history, family history, and review of systems otherwise are unchanged and have been reviewed from admission data in the emergency department and previous recent admission by Dr. Mickey Dukes. PHYSICAL EXAMINATION: He is a well-developed and nourished fellow currently resting reasonably comfortably upright in bed. Head and neck exam is unremarkable other than prescription eyewear. Neck is supple. No JVD or adenopathy. Chest: Equal, clear and unlabored bilaterally. Heart rate is regular. Abdomen is moderately obese and protuberant. Bowel sounds are active. No mass or organomegaly. External genitalia: Indwelling Capone catheter draining clear light straw-colored urine. Otherwise normal external male. Extremities: No pallor, edema, clubbing or cyanosis. DATABASE: CBC is significant for white count of 12.9, otherwise unremarkable. CT-KUB as described above. IMPRESSION: Obstructed right ureter due to obstructed right ureteral stent and presence of a right distal ureteral calculus. PLAN: Discussion, informed consent and scheduling for cystoscopy, right ureteral stent exchange, right ureteroscopic laser lithotripsy, possible right ureteral stone removal.
--- NOTE | 2016-05-29 00:35 | OP ---
[address] [address] OPERATIVE REPORT PATIENT: RODY SCOTT : 1965 MR#: [id number] ADMIT: 05/28/2016 JOB ID: [id number] DATE OF SURGERY: 05/28/2016 PREOPERATIVE DIAGNOSIS(ES): 1. Right ureteral obstruction due to multiple stone fragments and pumice. 2. Indwelling obstructed right ureteral stent. 3. Multiple bladder calculi. 4. Severe and intractable right renal colic. POSTOPERATIVE DIAGNOSIS(ES): 1. Right ureteral obstruction due to multiple stone fragments and pumice. 2. Indwelling obstructed right ureteral stent. 3. Multiple bladder calculi. OPERATION PERFORMED: 1. Cystoscopy, litholapaxy. 2. Cystoscopy, right ureteroscopic stone extraction. 3. Cystoscopy, right ureteral stent exchange (6-Macedonian by 22-32 cm variable length). SURGEON: Jed Scott MD. ANESTHESIOLOGIST: Jimbo Castro MD. ANESTHESIA: General. FINDINGS: Urethra normal. External sphincter intact. Prostate 3-1/2 to 4 cm length with elevated median bar. Bladder 1+ trabeculation with depressed bladder floor. Normal orifice on the left. On the right there is indwelling stent. The distal ureter was impacted with innumerable fragments and particles of sand and pumice related to recent intervention and intrarenal laser lithotripsy. This material was irrigated free of the ureter. PROCEDURE SUMMARY: The patient was positioned supine and was administered general anesthesia. He was then repositioned in semi-lithotomy, and lower abdomen, genitalia and groin were prepped and draped in sterile fashion. The 22-Macedonian panendoscope was then passed through the lower urinary tract with the findings as described above. Next, a foreign body grasper was used to engage the stent and the stent's distal tip and then this was brought out beyond the end of the penile meatus. A Glidewire was attempted to be passed through the stent but could not due to impaction of sand and proteinaceous products. Therefore, the panendoscope was reintroduced and a 0.35 Glidewire was advanced alongside the right ureteral stent and positioned in the right collecting system. The old ureteral stent was then removed in its entirety. There was massive efflux of stone material and fragments effluxing from the right orifice. The semi-rigid ureteroscope was then prepared and was advanced to the lower urinary tract and then into the right ureter, whereupon again a remarkable amount of material was contained within the confines of the ureter. The scope was passed proximally, flow was put on , and careful mechanical agitation with hydraulic irrigation was performed and with three tries the ureter was virtually clear. The ureteroscope was then removed. The scope was then front-loaded on the Glidewire and now a 6-Macedonian by 22-32 multilength was advanced over the Glidewire. It was positioned satisfactorily in the right collecting system under direct fluoroscopic guidance. NO RETRIEVAL LINE WAS LEFT ATTACHED. Next, using the 1000 Corks evacuator, the vast majority of stones and stone fragments were irrigated free of the bladder. These were all submitted to pathology for routine crystallographic analysis. A 16-Macedonian Capone catheter was then placed in the bladder, the balloon inflated to 10 cc, and it was placed to gravity drainage. The patient was then repositioned supine, awakened, transferred to [facility], transferred to recovery in stable condition.
[2016-06-01 15:08] LABS: Stone Color Tan (.)
== END 2016-05-28 23:59 | disposition home or self-care (01) ==
LOC: EDUNIT# 05:54 → EDBD 05:54 → SED 05:54 → SPI 10:22 → SAS 23:59
PROVIDERS: ATTEND Specialist
PROC: 0TC68ZZ Extirpation of Matter from Right Ureter, Via Natural or Artificial Opening Endoscopic (ICD-10-PCS; 2016-05-28)
PROC: 0T768DZ Dilation of Right Ureter with Intraluminal Device, Via Natural or Artificial Opening Endoscopic (ICD-10-PCS; principal; 2016-05-28 15:00)
DX: N20.1 Calculus of ureter (principal); N21.0 Calculus in bladder; T83.192A Other mechanical complication of indwelling ureteral stent, initial encounter; Y84.8 Other medical procedures as the cause of abnormal reaction of the patient, or of later complication, without mention of misadventure at the time of the procedure; Z96.0 Presence of urogenital implants
CPT/HCPCS: 36415; 52332; 52352; 74176; 76000; 80053; 82360; 83690; 83735; 85025; 96361; 96365; 96375; 99285; C2617; J0330; J0690; J1170; J1885; J2405; J2765; J3010; J7030; J7120